=== PATIENT | female | born 1955 | race Caucasian/White ===

== ENCOUNTER → 2016-04-28 15:58 | Outpatient (CLI) | payer BC ==
[2010-07-12 06:30] VITALS: BMI 32.7
== END | disposition home or self-care (01) ==
LOC: D.MAMMO 08:15
DX: Z12.31 Encounter for screening mammogram for malignant neoplasm of breast (principal)

== ENCOUNTER → 2017-05-29 19:22 | Outpatient (CLI) | payer BC ==
[2010-07-12 06:30] VITALS: BMI 32.7
== END | disposition home or self-care (01) ==
LOC: D.MAMMO 05-22 08:00
DX: Z12.31 Encounter for screening mammogram for malignant neoplasm of breast (principal)